=== PATIENT | male | born 1935 | race African-American/Black ===

== ENCOUNTER 2018-08-13 11:33 | Emergency (ER) | payer OTHER ==
[2018-08-13 11:33] VITALS: BMI 26.4
[2018-08-13 11:39] VITALS: TEMP 98.8
--- NOTE | 2018-08-13 12:52 | ED.PDOC ---
General ED Provider: Dr. 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 Has pain in lt side of lower chest wall notes it is painful in taking deep breath. Denies ongoing dyspnea. Skinned his rt pretibial surface. Time Seen by Physician: 12:50 Mode of Arrival: Wheelchair Information Source: Patient Exam Limitations: No limitations Primary Care Provider: DEBBIE ETIENNE Nursing and Triage Documentation Reviewed and Agree: Yes Does patient meet sepsis criteria?: No System Inflammatory Response Syndrome: Not Applicable Sepsis Protocol: For patient's 13 years and over: Temp is 96.8 and below OR 101 and greater Pulse >90 BPM Resp >20/minute Acutely Altered Mental Status Are patient's symptoms suggestive of a new infection, such as: -Pneumonia -Skin, Soft Tissue -Endocarditis -UTI -Bone, Joint Infection -Implantable Device -Acute Abdominal Infection -Wound Infection -Meningitis -Blood Stream Catheter Infection -Unknown Musculoskeletal Complaint Exam - Back Pain Complaint/Exam Mechanism of Injury: Reports: Trauma, Other (Chest wall and rib cage pain) Onset/Duration: Yesterday Symptoms Are: Still present Timing: Constant Episodes Lasting: Hours Initial Severity: Severe Current Severity: Moderate Location: Reports: Diffuse Character: Reports: Sharp, Aching Aggravating: Reports: Movements, Lifting, Bending Alleviating: Reports: Rest Associated Signs and Symptoms: Reports: Swelling, Bruising, Flank pain (Over Lt Rib Cage extending to LT CVA) Related History: Denies: Similar episode TAD Risk Factors: Reports: None AAA Risk Factors: Reports: None Cauda Equina Risk Factors: Reports: None Related Surgical History: Reports: None Focal Tenderness: Yes Paraspinal Muscle Tenderness: Yes Paraspinal Muscle Spasm: Yes Scoliosis: No Lordosis: No Kyphosis: No SLR Test: Right Negative, Left Negative Focal Weakness: Present: None Focal Sensory Loss: Present: None Gait: Present: Normal Differential Diagnoses: Strain, Other (Rib fractures) Review of Systems - Review Of Systems Constitutional: Reports: No symptoms Eyes: Reports: No symptoms Ears, Nose, Mouth, Throat: Reports: No symptoms Respiratory: Reports: No symptoms Cardiac: Reports: No symptoms GI: Reports: No symptoms : Reports: No symptoms Musculoskeletal: Reports: No symptoms, Joint pain, Other Skin: Reports: No symptoms Neurological: Reports: No symptoms Endocrine: Reports: No symptoms Hematologic/Lymphatic: Reports: No symptoms All Other Systems: Reviewed and Negative Past Medical History - Past Medical History Previously Healthy: Yes Endocrine: Reports: None Cardiovascular: Reports: Hypertension Respiratory: Reports: None Hematological: Reports: None Gastrointestinal: Reports: None Genitourinary: Reports: None Neuro/Psych: Reports: None Musculoskeletal: Reports: Back Pain Cancer: Reports: None - Surgical History General Surgical History: Reports: Unknown - Family History Family History: Reports: Unknown - Social History Smoking Status: Never smoker Hx Substance Use: No Alcohol Screening: None Physical Exam - Physical Exam Appearance: Well-appearing, No pain distress, Well-nourished Ill-appearing: None Pain Distress: None Eyes: ESTRELLITA, EOMI, Conjunctiva clear ENT: Ears normal, Nose normal, Oropharynx normal Neck: Supple Respiratory: Airway patent, Breath sounds clear, Breath sounds equal, Respirations nonlabored Cardiovascular: RRR, Pulses normal, No rub, No murmur GI/: Soft, Nontender, No masses, Bowel sounds normal, No Organomegaly Musculoskeletal: Normal strength, ROM intact, No edema, No calf tenderness Skin: Warm, Dry, Normal color Neurological: Sensation intact, Motor intact, Reflexes intact, Cranial nerves intact, Alert, Oriented Interpretation - Radiology Interpretation Radiology Interpretation By: Radiologist Radiology Results: Positive Xray Comments: Lt 6-10 rib fractures/ Physician Notification - Case Discussed Physician Notified: Dr Etienne Time of Notification: 13:00 (Informed him of patient and dx-out pt follow up recommended) Critical Care Note - Critical Care Note Total Time (mins): 60 Course - Course Orders, Labs, Meds: Orders Category Date Time Status INCENTIVE SPIROMETRY Routine CARDIO 08/13/18 14:45 Completed RIBS TONYA., W/ PA CHEST MIN 4V Stat RADS 08/13/18 12:51 Completed Vital Signs: Temp Pulse Resp BP Pulse Ox 08/13/18 14:26 185/111 H 96 08/13/18 11:33 98.8 F 98 H 20 204/108 H 95 Departure - Departure Time of Disposition: 14:20 Disposition: HOME SELF-CARE Discharge Problem: Multiple fractures of rib involving four or more ribs, Blunt injury of chest Instructions: Rib Fracture (ED) Condition: Good Pt referred to PMD for follow-up: Yes (Dr Etienne notified-see him in 2-3 days) IPMP verified?: No Additional Instructions: Use incentive spirometry four times daily Use pillow to support self Take Tylenol 2 tabs every four hours for pain control as needed Allergies/Adverse Reactions: Allergies No Known Allergies Allergy (Verified 08/13/18 11:41) Home Medications: Ambulatory Orders Hydrochlorothiazide 12.5 mg PO DAILY 12/10/14 Lisinopril [Zestril] 5 mg PO DAILY 12/10/14 Disposition Discussed With: Patient, Family Pain Assessement - Location Left Chest Description: Sharp, Aching Duration: 24 Pain Alleviating Factors: Position Change
--- NOTE | 2018-08-13 13:40 | DI ---
EXAM: AP Chest with AP, oblique, and cone down views of the bilateral ribs HISTORY: Fall with rib pain, left greater than right FINDINGS: Prior studies are not available for comparison. The left hemidiaphragm is elevated. Subja cent compressive atelectasis is noted. No pneumothorax or pleural effusions are appreciated. The hear t size is normal. The aorta is atherosclerotic. The left sixth through tenth ribs are fractured with mild displacement. The left rib is fractured at two locations. IMPRESSION: 1. Fractures, left sixth through tenth ribs. Note, the left ninth rib is fractured at two locations . 2. No acute cardiopulmonary disease. 3. Elevated left hemidiaphragm. 4. ASCVD.
[2018-08-13 14:27] VITALS: BP 185/111
== END 2018-08-13 14:48 | disposition home or self-care (01) ==
LOC: ED 11:33
DX: S22.42XA Multiple fractures of ribs, left side, initial encounter for closed fracture (principal); W01.198A Fall on same level from slipping, tripping and stumbling with subsequent striking against other object, initial encounter; I10 Essential (primary) hypertension
CPT/HCPCS: 94150; 99283